=== PATIENT | female | born 1985 | race African-American/Black ===

== ENCOUNTER 2018-09-19 15:53 | Emergency (ER) | payer MEDICAID, OTHER ==
[~2018-09-19] VITALS: Ht 157.5 cm; Wt 90.7 kg
[~2018-09-19 15:53] MED LIST: MULTTAB99
[2018-09-19 15:58] VITALS: BP 131/89
[2018-09-19] MEDS ORDERED: IBUPROFEN 800 MG TAB PO ONE (19:15)
[2018-09-19] MEDS ORDERED: TETANUS-DIPTH-ACEL PERTUSSIS 0.5ML SYRG IM ONE (19:15)
[2018-09-19] MEDS ORDERED: NEOMYCIN-BACITRACIN-POLYM UNITDOSE PKG TOP OINT TOP ONE (19:45)
== END 2018-09-19 20:09 | disposition home or self-care (01) ==
LOC: ER 15:53
DX: S61.431A Puncture wound without foreign body of right hand, initial encounter (principal); W54.0XXA Bitten by dog, initial encounter; Y93.89 Activity, other specified; Y99.8 Other external cause status; Y92.89 Other specified places as the place of occurrence of the external cause
CPT/HCPCS: 90471; 90715